=== PATIENT | female | born 1955 | race African-American/Black ===

== ENCOUNTER 2025-09-05 09:14 | Inpatient (IN) | payer MEDICARE, MEDICAID ==
[~2025-09-05] VITALS: Ht 167.6 cm; Wt 98.4 kg
[2025-09-05] VITALS (31 sets, daily range): BP systolic 69–131; BP diastolic 33–62; PULSE 73–91; RESP 14–29; TEMP 36.5–37.0852; O2SAT 94–100
[2025-09-05 09:56] LABS: BASOPHILS % 0.4 % (0.0-2.0); EOSINOPHILS % 0.1 % (0.0-5.0); HEMATOCRIT. 43.2 % (36.0-48.0); HEMOGLOBIN. 13.7 g/dL (12.0-16.0); LYMPHOCYTES % 7.5 % (20.0-50.0); MEAN PLATELET VOLUME 10.3 fl (7.4-10.4); MONOCYTES % 3.9 % (2.0-8.0); NEUTROPHILS % 88.1 % (40.0-76.0); PLATELET 203 x1000/uL (130-400); RED BLOOD CELL COUNT 4.77 mill/uL (4.2-5.4); RED CELL DISTRIBUTION WIDTH 15.4 % (11.6-14.6)
[2025-09-05] MEDS: ACETAMINOPHEN 325MG TABLET PO ONE (10:04)
[2025-09-05 10:28] LABS: TROPONIN I HIGH SENSITIVITY 11 ng/L (3.0-34)
[2025-09-05 12:19] LABS: CREATININE 2.2 mg/dL (0.6-1.0)
[2025-09-05 12:20] LABS: UREA NITROGEN BLOOD 35 mg/dL (9-23)
[2025-09-05 12:21] LABS: ASPARTATE AMINOTRANSFERASE 14 IU/L (<34)
[2025-09-05 12:22] LABS: BILIRUBIN DIRECT 0.1 mg/dL (<=3.0); BILIRUBIN TOTAL 0.4 mg/dL (0.1-1.0); PROTEIN TOTAL 7.1 g/dL (6.0-8.3)
[2025-09-05] MEDS ORDERED: INSULIN REGULAR (DRIP) 100 UNITS in SODIUM CHLORIDE 0.9% 99 ML IV STA (12:50)
[2025-09-05] MEDS ORDERED: BLOOD SUGAR DIAGNOSTIC STRIP TEST PRN ×2 (13:00→13:15)
[2025-09-05] MEDS ORDERED: DEXTROSE 50% WATER 50ML SYRINGE IV PRN ×2 (13:00→13:15)
[2025-09-05] MEDS: INSULIN REGULAR (HUMULIN R) 1000UNITS/10ML VIAL IV ONE (13:07)
[2025-09-05] MEDS: SODIUM CHLORIDE 0.9% 1,000 ML IV SCH ×2 (13:07→13:15)
[2025-09-05] MEDS: BLOOD SUGAR DIAGNOSTIC STRIP TEST SCH ×2 (13:15→13:20)
[2025-09-05] MEDS ORDERED: CLONIDINE 0.1MG TABLET PO PRN (13:15)
[2025-09-05] MEDS ORDERED: MAGNESIUM/ALUMINUM HYDROXIDE/SIMETHICONE 30ML UDC PO PRN (13:15)
[2025-09-05] MEDS ORDERED: ACETAMINOPHEN 325MG TABLET PO PRN (13:15)
[2025-09-05] MEDS ORDERED: GUAIFENESIN 200MG/10ML SUGAR FREE UDC PO PRN (13:15)
[2025-09-05] MEDS ORDERED: ONDANSETRON HCL 4MG/2ML INJ IV PRN (13:15)
[2025-09-05] MEDS ORDERED: SODIUM PHOSPHATE 15 MMOL in SODIUM CHLORIDE 0.9% 245 ML IV PRN (13:15)
[2025-09-05] MEDS ORDERED: POTASSIUM CHLORIDE 40 MEQ in SODIUM CHLORIDE 0.9% 230 ML IV PRN (13:15)
[2025-09-05] MEDS ORDERED: DOCUSATE SODIUM 100MG CAPSULE PO PRN (13:15)
[2025-09-05] MEDS: INSULIN REGULAR 100U/100ML PMX 100 ML IV PRN ×2 (13:19→20:06)
[2025-09-05 14:06] LABS: BG BASE EXCESS -5.4 mmol/L (-2.0-3.0); BG CARBOXYHEMOGLOBIN 1.5 % (0.5-1.5); BG DEOXYHEMOGLOBIN 2.9 % (0.0-5.0); BG FRACTION INSPIRED OXYGEN 21; BG HCO3 ACT 18.7 mmol/L (21.0-28.0); BG METHEMOGLOBIN 0.1 % (0.5-1.5); BG OXYGEN SATURATION 97.1 % (94.0-98.0); BG OXYHEMOGLOBIN 95.5 % (94.0-98.0); BG PCO2 32.7 mmHg (32.0-45.0); BG PH 7.376 (7.350-7.450); BG PO2 90.3 mmHg (83.0-108.0); BG SAMPLE SITE RIGHT RADIAL; BG TOTAL HEMOGLOBIN 13.8 g/dL (12.0-16.0); BG VENT MODE ROOM AIR
[2025-09-05 15:39] LABS: CREATININE 2.2 mg/dL (0.6-1.0)
[2025-09-05 15:40] LABS: TROPONIN I HIGH SENSITIVITY 12 ng/L (3.0-34); UREA NITROGEN BLOOD 45.0 mg/dL (9-23)
[2025-09-05] MEDS: KCL 20MEQ/100ML PREMIX 100 ML IV PRN (16:09)
[2025-09-05 16:49] LABS: PHOSPHORUS 3.7 mg/dL (2.5-4.9)
[2025-09-05] MEDS ORDERED: NOREPINEPHRINE 8MG/250ML PMX 250ML IV PRN (17:15)
[2025-09-05] MEDS ORDERED: NOREPINEPHRINE 8 MG in DEXT 5% WATER 242 ML IV PRN (17:15)
[2025-09-05] MEDS: SODIUM CHLORIDE 0.9% (SEPSIS BOLUS) IV ONE (18:00)
[2025-09-05] MEDS ORDERED: INSULIN REGULAR 100U/100ML PMX 100 ML IV PRN (18:00)
[2025-09-05 18:18] LABS: CLARITY URINE TURBID (CLEAR); GLUCOSE URINE 3+ (NEGATIVE); KETONES URINE NEGATIVE (NEGATIVE); LEUKOCYTE ESTERASE URINE 3+ (NEGATIVE); NITRITE URINE NEGATIVE (NEGATIVE); OCCULT BLOOD URINE 3+ (NEGATIVE); PH URINE 5.0 (4.5-8.0); PROTEIN URINE 1+ (NEGATIVE); SPECIFIC GRAVITY URINE 1.012 (1.005-1.030); UROBILINOGEN URINE 0.2 E.U./dL (0.2-1.0)
[2025-09-05] MEDS: ENOXAPARIN 30MG/0.3ML SYR SUBCUT SCH (18:47)
[2025-09-05 18:57] LABS: COLOR URINE STRAW (YELLOW)
[2025-09-05 19:01] LABS: *AMPHETAMINES SCREEN URINE NEGATIVE (NEGATIVE); *BARBITURATES SCREEN URINE NEGATIVE (NEGATIVE); *BENZODIAZEPINES SCREEN URINE NEGATIVE (NEGATIVE); *COCAINE SCREEN URINE NEGATIVE (NEGATIVE)
[2025-09-05 19:02] LABS: BACTERIA URINE 4+; CANNABINOID URINE SCREEN NEGATIVE (NEGATIVE); ECSTASY MDMA SCREEN URINE NEGATIVE (NEGATIVE); METHADONE URINE SCREEN NEGATIVE (NEGATIVE); OPIATES URINE SCREEN NEGATIVE (NEGATIVE); PHENCYCLIDINE URINE SCREEN NEGATIVE (NEGATIVE); RBC URINE 0-2 /hpf (0-2); SQUAMOUS EPITHELIAL CELL URINE RARE /lpf (RARE/1+); YEAST URINE 3+
[2025-09-05 19:03] LABS: MUCUS URINE TRACE /lpf (< = 2+)
[2025-09-05] MEDS: DEXT 5%/0.9% NACL 1,000 ML IV SCH (19:25)
[2025-09-05 22:16] LABS: CREATININE 1.6 mg/dL (0.6-1.0)
[2025-09-05 22:17] LABS: UREA NITROGEN BLOOD 46 mg/dL (9-23)
[2025-09-05 22:19] LABS: PHOSPHORUS 2.4 mg/dL (2.5-4.9)
[2025-09-06] VITALS (92 sets, daily range): BP systolic 83–157; BP diastolic 35–80; PULSE 74–95; RESP 11–32; TEMP 36.7–37; O2SAT 92–100
[2025-09-06 03:22] LABS: PHOSPHORUS 2.5 mg/dL (2.5-4.9)
[2025-09-06 07:03] LABS: BASOPHILS % 0.1 % (0.0-2.0); EOSINOPHILS % 0.4 % (0.0-5.0); HEMATOCRIT. 34.7 % (36.0-48.0); HEMOGLOBIN. 11.2 g/dL (12.0-16.0); LYMPHOCYTES % 14.2 % (20.0-50.0); MEAN PLATELET VOLUME 10.0 fl (7.4-10.4); MONOCYTES % 14.4 % (2.0-8.0); NEUTROPHILS % 70.9 % (40.0-76.0); PLATELET 157 x1000/uL (130-400); RED BLOOD CELL COUNT 3.99 mill/uL (4.2-5.4); RED CELL DISTRIBUTION WIDTH 15.0 % (11.6-14.6)
[2025-09-06 07:39] LABS: T4 FREE 0.86 ng/dL (0.89-1.76)
[2025-09-06 07:40] LABS: CREATININE 1.1 mg/dL (0.6-1.0)
[2025-09-06 07:41] LABS: TRIGLYCERIDE 218 mg/dL (0-150); UREA NITROGEN BLOOD 37 mg/dL (9-23)
[2025-09-06 07:42] LABS: ASPARTATE AMINOTRANSFERASE 18 IU/L (<34); LDL CHOLESTEROL 31 mg/dL (5-100)
[2025-09-06 07:43] LABS: BILIRUBIN DIRECT < 0.1 mg/dL (<=3.0); BILIRUBIN TOTAL 0.3 mg/dL (0.1-1.0); PROTEIN TOTAL 5.5 g/dL (6.0-8.3)
[2025-09-06] MEDS: PANTOPRAZOLE SODIUM 40 MG/VIAL IV SCH (08:16)
[2025-09-06] MEDS: CEFTRIAXONE 1GM/50ML 50 ML IV SCH (08:16)
[2025-09-06] MEDS: INSULIN GLARGINE 100 UNITS/ML SUBCUT SCH ×2 (10:48→21:19)
[2025-09-06 11:54] LABS: CLARITY URINE TURBID (CLEAR); COLOR URINE RED (YELLOW); GLUCOSE URINE NEGATIVE (NEGATIVE); KETONES URINE NEGATIVE (NEGATIVE); LEUKOCYTE ESTERASE URINE 3+ (NEGATIVE); NITRITE URINE POSITIVE (NEGATIVE); OCCULT BLOOD URINE 1+ (NEGATIVE); PH URINE 5.0 (4.5-8.0); PROTEIN URINE 1+ (NEGATIVE); SPECIFIC GRAVITY URINE 1.015 (1.005-1.030); UROBILINOGEN URINE 0.2 E.U./dL (0.2-1.0)
[2025-09-06] MEDS: SODIUM CHLORIDE 0.9% 500 ML IV ONE (12:15)
[2025-09-06 12:54] LABS: SQUAMOUS EPITHELIAL CELL URINE RARE /lpf (RARE/1+); WBC URINE TNTC /hpf (0-2)
[2025-09-06 12:55] LABS: BACTERIA URINE 4+; YEAST URINE 1+
[2025-09-06 12:56] LABS: RBC URINE 0-2 /hpf (0-2)
[2025-09-06 13:08] LABS: CREATININE 0.9 mg/dL (0.6-1.0); UREA NITROGEN BLOOD 26 mg/dL (9-23)
[2025-09-06 13:10] LABS: PHOSPHORUS 1.6 mg/dL (2.5-4.9)
[2025-09-06] MEDS: BLOOD SUGAR DIAGNOSTIC STRIP TEST SCH (13:15)
[2025-09-06] MEDS: NOREPINEPHRINE 8MG/250ML PMX 250 ML IV PRN (13:30)
[2025-09-06] MEDS: INSULIN LISPRO 100 UNITS/ML SUBCUT SCH (13:32)
[2025-09-06] MEDS: SODIUM PHOSPHATE 30 MMOL in DEXT 5% WATER 490 ML IV ONE (17:23)
[2025-09-06] MEDS: SODIUM CHLORIDE 0.9% 1,000 ML IV SCH (18:54)
[2025-09-06] MEDS: MIDODRINE HCL 5MG TABLET PO SCH (18:55)
[2025-09-06] MEDS: MAGNESIUM 2 G PREMIX 50 ML IV PRN (19:36)
[2025-09-07] VITALS (76 sets, daily range): BP systolic 105–149; BP diastolic 45–75; PULSE 71–89; RESP 0–34; TEMP 36.8–36.9; O2SAT 96–100
[2025-09-07 06:25] LABS: BASOPHILS % 0.3 % (0.0-2.0); EOSINOPHILS % 0.2 % (0.0-5.0); HEMATOCRIT. 32.8 % (36.0-48.0); HEMOGLOBIN. 10.6 g/dL (12.0-16.0); LYMPHOCYTES % 17.2 % (20.0-50.0); MEAN PLATELET VOLUME 9.5 fl (7.4-10.4); MONOCYTES % 14.6 % (2.0-8.0); NEUTROPHILS % 67.7 % (40.0-76.0); PLATELET 155 x1000/uL (130-400); RED BLOOD CELL COUNT 3.78 mill/uL (4.2-5.4); RED CELL DISTRIBUTION WIDTH 15.0 % (11.6-14.6)
[2025-09-07 06:44] LABS: CREATININE 0.7 mg/dL (0.6-1.0); UREA NITROGEN BLOOD 18 mg/dL (9-23)
[2025-09-07 08:43] LABS: PHOSPHORUS 1.7 mg/dL (2.5-4.9)
[2025-09-07] MEDS: MIDODRINE HCL 5MG TABLET PO SCH (08:55)
[2025-09-07] MEDS: INSULIN LISPRO 100 UNITS/ML SUBCUT SCH (13:54)
[2025-09-08] VITALS: BP 110/53; PULSE 75; RESP 18; TEMP 36.5; O2SAT 100
[2025-09-08 04:00] VITALS: BP 111/57; PULSE 80; RESP 18; TEMP 36.5; O2SAT 99
[2025-09-08 06:35] LABS: BASOPHILS % 0.2 % (0.0-2.0); EOSINOPHILS % 0.6 % (0.0-5.0); HEMATOCRIT. 33.2 % (36.0-48.0); HEMOGLOBIN. 10.9 g/dL (12.0-16.0); LYMPHOCYTES % 23.3 % (20.0-50.0); MEAN PLATELET VOLUME 10.3 fl (7.4-10.4); MONOCYTES % 13.5 % (2.0-8.0); NEUTROPHILS % 62.4 % (40.0-76.0); PLATELET 140 x1000/uL (130-400); RED BLOOD CELL COUNT 3.83 mill/uL (4.2-5.4); RED CELL DISTRIBUTION WIDTH 15.3 % (11.6-14.6)
[2025-09-08 06:37] LABS: CREATININE 0.7 mg/dL (0.6-1.0); UREA NITROGEN BLOOD 8 mg/dL (9-23)
[2025-09-08 08:00] VITALS: BP 106/48; PULSE 76; RESP 18; TEMP 37.2; O2SAT 98
[2025-09-08] MEDS: ENOXAPARIN 30MG/0.3ML SYR SUBCUT SCH (10:32)
[2025-09-08] MEDS: INSULIN GLARGINE 100 UNITS/ML SUBCUT SCH (10:33)
[2025-09-08 12:00] VITALS: BP 104/55; PULSE 74; RESP 18; TEMP 37.7; O2SAT 99
[2025-09-08 16:00] VITALS: BP 124/58; PULSE 72; RESP 20; TEMP 37.7; O2SAT 100
[2025-09-08] MEDS: MENTHOL/LANOLIN/CALAMINE/ZN OX OINT 71GM TOP SCH (21:00)
[2025-09-09] VITALS: BP 118/77; PULSE 78; RESP 18; TEMP 36.4; O2SAT 100
[2025-09-09 04:00] VITALS: BP 144/63; PULSE 80; RESP 18; TEMP 36.2; O2SAT 97
[2025-09-09 08:00] VITALS: BP 133/72; PULSE 82; RESP 19; TEMP 38.2; O2SAT 100
[2025-09-09 12:00] VITALS: BP 132/67; PULSE 77; RESP 18; TEMP 36.6; O2SAT 100
[2025-09-09 16:00] VITALS: BP 168/74; PULSE 77; RESP 19; TEMP 36.4; O2SAT 100
[2025-09-09] MEDS ORDERED: FLAS1EAC2 MC (16:52)
[2025-09-09] MEDS ORDERED: METF-414 MT (16:52)
[2025-09-09] MEDS ORDERED: NITR-87 MT (16:52)
[2025-09-09] MEDS ORDERED: LANC-493 TP (16:52)
[2025-09-09] MEDS ORDERED: INSU100I28 SQ (16:52)
[2025-09-09 20:00] VITALS: BP 116/57; PULSE 83; RESP 18; TEMP 36.1; O2SAT 99
[2025-09-10] VITALS (94 sets, daily range): BP systolic 31–197; BP diastolic 20–118; PULSE 51–163; RESP 0–37; TEMP 35.5–37.8; O2SAT 81–100
[2025-09-10 10:40] LABS: BG BASE EXCESS -3.2 mmol/L (-2.0-3.0); BG CARBOXYHEMOGLOBIN 0.6 % (0.5-1.5); BG DEOXYHEMOGLOBIN 0.1 % (0.0-5.0); BG FRACTION INSPIRED OXYGEN 100; BG HCO3 ACT 21.9 mmol/L (21.0-28.0); BG METHEMOGLOBIN 0.3 % (0.5-1.5); BG OXYGEN SATURATION 99.9 % (94.0-98.0); BG OXYHEMOGLOBIN 99.0 % (94.0-98.0); BG PCO2 39.3 mmHg (32.0-45.0); BG PH 7.363 (7.350-7.450); BG PO2 419.8 mmHg (83.0-108.0); BG SAMPLE SITE LEFT RADIAL; BG TOTAL HEMOGLOBIN 12.5 g/dL (12.0-16.0); BG VENT MODE MASK - NRB
[2025-09-10] MEDS ORDERED: LEVETIRACETAM 1,000MG in NACL 100ML PREMIX IV ONE (10:45)
[2025-09-10] MEDS: LEVETIRACETAM 1000MG PREMIX 100 ML IV NR (10:45)
[2025-09-10] MEDS ORDERED: PROPOFOL 10MG/ML 100ML 100 ML IV PRN (11:30)
[2025-09-10] MEDS: EPINEPHRINE 10 MG in SODIUM CHLORIDE 0.9% 240 ML IV PRN (12:27)
[2025-09-10] MEDS ORDERED: MAGNESIUM 2 G PREMIX 50 ML IV SCH (13:00)
[2025-09-10] MEDS ORDERED: PHENYLEPHRINE 50MG/250ML PMX 250 ML IV PRN (14:30)
[2025-09-10] MEDS: PHENYLEPHRINE 50 MG in DEXTROSE 5% WATER 250 ML IV PRN (15:30)
[2025-09-10] MEDS: NOREPINEPHRINE 8MG/250ML PMX 250 ML IV PRN (15:30)
[2025-09-10] MEDS ORDERED: AMIODARONE HCL 150 MG in DEXT 5% WATER 100 ML IV ONE (15:30)
[2025-09-10] MEDS: MAGNESIUM 2 G PREMIX 50 ML IV SCH (15:31)
[2025-09-10 15:39] LABS: BASOPHILS % 0.5 % (0.0-2.0); EOSINOPHILS % 0.4 % (0.0-5.0); HEMATOCRIT. 39.1 % (36.0-48.0); HEMOGLOBIN. 11.5 g/dL (12.0-16.0); LYMPHOCYTES % 42.3 % (20.0-50.0); MEAN PLATELET VOLUME 8.3 fl (7.4-10.4); MONOCYTES % 3.7 % (2.0-8.0); NEUTROPHILS % 53.1 % (40.0-76.0); PLATELET 139 x1000/uL (130-400); RED BLOOD CELL COUNT 4.07 mill/uL (4.2-5.4); RED CELL DISTRIBUTION WIDTH 16.3 % (11.6-14.6)
[2025-09-10] MEDS: VASOPRESSIN 20 UNIT in SODIUM CHLORIDE 0.9% 99 ML IV PRN (15:51)
[2025-09-10 15:59] LABS: UREA NITROGEN BLOOD 15 mg/dL (9-23)
[2025-09-10 16:01] LABS: PHOSPHORUS 7.2 mg/dL (2.5-4.9)
[2025-09-10 16:29] LABS: CREATININE 1.5 mg/dL (0.6-1.0)
[2025-09-10 16:32] LABS: TROPONIN I HIGH SENSITIVITY 1636 ng/L (3.0-34)
[2025-09-10] MEDS ORDERED: DOPAMINE 400MG/250ML PREMIX 250 ML IV PRN (16:45)
[2025-09-10] MEDS ORDERED: *TENECTEPLASE FOR AIS XX SCH (17:00)
[2025-09-10] MEDS: TENECTEPLASE 50MG/VIAL (FOR MI OR PE) IV ONE (17:00)
[2025-09-10] MEDS: EPINEPHRINE 20 MG in SODIUM CHLORIDE 0.9% 480 ML IV PRN (17:55)
[2025-09-10] MEDS: AMIODARONE 150MG/100ML PREMIX IV SCH (18:01)
[2025-09-10] MEDS: AMIODARONE HCL 900 MG in DEXT 5% WATER 482 ML IV SCH (18:19)
[2025-09-10] MEDS: BLOOD SUGAR DIAGNOSTIC STRIP TEST SCH (20:35)
[2025-09-10] MEDS: PANTOPRAZOLE SODIUM 40 MG/VIAL IV SCH (20:41)
[2025-09-10] MEDS: LEVETIRACETAM 500MG PREMIX 100 ML IV SCH (20:41)
[2025-09-10] MEDS: INSULIN LISPRO 100 UNITS/ML SUBCUT SCH (20:42)
[2025-09-10] MEDS ORDERED: LEVETIRACETAM 500MG in NACL 100ML PREMIX IV SCH (21:00)
[2025-09-10] MEDS: NOREPINEPHRINE 32 MG in DEXT 5% WATER 218 ML IV PRN (21:28)
[2025-09-10] MEDS: PHENYLEPHRINE 100 MG in DEXT 5% WATER 240 ML IV PRN (21:28)
[2025-09-10 23:03] LABS: TROPONIN I HIGH SENSITIVITY 5219 ng/L (3.0-34)
[2025-09-10] MEDS: IOHEXOL-350 100 ML BOTTLE ONE (23:49)
[2025-09-11] VITALS (127 sets, daily range): BP systolic 80–231; BP diastolic 37–60; PULSE 73–117; RESP 9–39; TEMP 37.2–38.5; O2SAT 40–100
[2025-09-11 02:07] LABS: TROPONIN I HIGH SENSITIVITY 4588 ng/L (3.0-34)
[2025-09-11] MEDS: ACETAMINOPHEN 650MG SUPP PR PRN (03:44)
[2025-09-11 05:16] LABS: PLATELET 176 x1000/uL (130-400); RED BLOOD CELL COUNT 4.31 mill/uL (4.2-5.4); RED CELL DISTRIBUTION WIDTH 15.8 % (11.6-14.6)
[2025-09-11 05:29] LABS: INR 1.6
[2025-09-11 05:31] LABS: TRIGLYCERIDE 148 mg/dL (0-150)
[2025-09-11 05:33] LABS: BILIRUBIN DIRECT 0.2 mg/dL (<=3.0); BILIRUBIN TOTAL 0.3 mg/dL (0.1-1.0); PROTEIN TOTAL 4.7 g/dL (6.0-8.3)
[2025-09-11 05:40] LABS: TROPONIN I HIGH SENSITIVITY 4199 ng/L (3.0-34)
[2025-09-11 05:46] LABS: ASPARTATE AMINOTRANSFERASE 1741 IU/L (<34)
[2025-09-11 08:15] LABS: UREA NITROGEN BLOOD 22.0 mg/dL (9-23)
[2025-09-11 08:27] LABS: CREATININE 2.1 mg/dL (0.6-1.0)
[2025-09-11 10:23] LABS: BG BASE EXCESS -9.9 mmol/L (-2.0-3.0); BG CARBOXYHEMOGLOBIN 0.6 % (0.5-1.5); BG DEOXYHEMOGLOBIN 1.3 % (0.0-5.0); BG FRACTION INSPIRED OXYGEN 40; BG HCO3 ACT 15.1 mmol/L (21.0-28.0); BG METHEMOGLOBIN 0.3 % (0.5-1.5); BG OXYGEN SATURATION 98.7 % (94.0-98.0); BG OXYHEMOGLOBIN 97.8 % (94.0-98.0); BG PCO2 30.5 mmHg (32.0-45.0); BG PEEP (cmH2O) 5.0 cmH2O; BG PH 7.312 (7.350-7.450); BG PO2 114.9 mmHg (83.0-108.0); BG SAMPLE SITE LEFT BRACHIAL; BG TIDAL VOLUME(mL) 450.0 mL; BG TOTAL HEMOGLOBIN 12.4 g/dL (12.0-16.0); BG TOTAL RESPIRATORY RATE 31 b/min; BG VENT MODE VENT - AC; BG VENT RATE 16.0 set
[2025-09-11] MEDS: ACETAMINOPHEN 650MG/20.3ML UDC NG PRN (13:27)
[2025-09-11] MEDS: SODIUM BICARBONATE 8.4% 50MEQ/50ML SYR IV SCH (13:29)
[2025-09-11] MEDS: SODIUM CHLORIDE 0.9% 500 ML IV ONE ×2 (13:37→18:39)
[2025-09-11 18:25] LABS: PLATELET 143 x1000/uL (130-400); RED BLOOD CELL COUNT 3.68 mill/uL (4.2-5.4); RED CELL DISTRIBUTION WIDTH 15.6 % (11.6-14.6)
[2025-09-11] MEDS: HEPARIN 80 UNITS/KG BOLUS IV SCH (18:39)
[2025-09-11] MEDS: HEPARIN 25,000 UNITS PREMIX 250 ML IV SCH (18:44)
[2025-09-11] MEDS: IPRATROPIUM/ALBUTEROL 0.5-3(2.5)MG/3ML NEB HHN PRN (20:35)
[2025-09-11] MEDS: INSULIN GLARGINE 100 UNITS/ML SUBCUT SCH (22:01)
[2025-09-11] MEDS ORDERED: HEPARIN BOLUS PRN aPTT <36 IV (23:30)
[2025-09-11] MEDS ORDERED: HEPARIN BOLUS PRN aPTT 37-44 IV (23:30)
[2025-09-12] VITALS (107 sets, daily range): BP systolic 105–147; BP diastolic 46–55; PULSE 98–113; RESP 12–35; TEMP 36.1–37.5; O2SAT 100
[2025-09-12 00:34] LABS: PLATELET 140 x1000/uL (130-400); RED BLOOD CELL COUNT 3.35 mill/uL (4.2-5.4); RED CELL DISTRIBUTION WIDTH 15.5 % (11.6-14.6)
[2025-09-12 05:43] LABS: BASOPHILS % 0.4 % (0.0-2.0); EOSINOPHILS % 0.6 % (0.0-5.0); HEMATOCRIT. 29.1 % (36.0-48.0); HEMOGLOBIN. 9.5 g/dL (12.0-16.0); LYMPHOCYTES % 7.6 % (20.0-50.0); MEAN PLATELET VOLUME 9.1 fl (7.4-10.4); MONOCYTES % 3.9 % (2.0-8.0); NEUTROPHILS % 87.5 % (40.0-76.0); PLATELET 146 x1000/uL (130-400); RED BLOOD CELL COUNT 3.35 mill/uL (4.2-5.4); RED CELL DISTRIBUTION WIDTH 15.3 % (11.6-14.6)
[2025-09-12 06:18] LABS: UREA NITROGEN BLOOD 23 mg/dL (9-23)
[2025-09-12 06:21] LABS: PHOSPHORUS 3.9 mg/dL (2.5-4.9)
[2025-09-12 06:26] LABS: CREATININE 3.1 mg/dL (0.6-1.0)
[2025-09-12] MEDS: SODIUM CHLORIDE 0.9% 1,000 ML IV ONE (09:00)
[2025-09-12 09:23] LABS: BG BASE EXCESS -3.7 mmol/L (-2.0-3.0); BG CARBOXYHEMOGLOBIN 1.5 % (0.5-1.5); BG DEOXYHEMOGLOBIN 0.9 % (0.0-5.0); BG FRACTION INSPIRED OXYGEN 40; BG HCO3 ACT 19.2 mmol/L (21.0-28.0); BG METHEMOGLOBIN 0.0 % (0.5-1.5); BG OXYGEN SATURATION 99.1 % (94.0-98.0); BG OXYHEMOGLOBIN 97.6 % (94.0-98.0); BG PCO2 28.1 mmHg (32.0-45.0); BG PEEP (cmH2O) 5.0 cmH2O; BG PH 7.452 (7.350-7.450); BG PO2 152.8 mmHg (83.0-108.0); BG SAMPLE SITE RIGHT RADIAL; BG TIDAL VOLUME(mL) 450.0 mL; BG TOTAL HEMOGLOBIN 11.3 g/dL (12.0-16.0); BG VENT MODE VENT - AC; BG VENT RATE 22.0 set
[2025-09-12 12:19] LABS: BASOPHILS % 0.4 % (0.0-2.0); EOSINOPHILS % 0.7 % (0.0-5.0); HEMATOCRIT. 27.2 % (36.0-48.0); HEMOGLOBIN. 8.8 g/dL (12.0-16.0); LYMPHOCYTES % 10.9 % (20.0-50.0); MEAN PLATELET VOLUME 8.5 fl (7.4-10.4); MONOCYTES % 5.0 % (2.0-8.0); NEUTROPHILS % 83.0 % (40.0-76.0); PLATELET 151 x1000/uL (130-400); RED BLOOD CELL COUNT 3.14 mill/uL (4.2-5.4); RED CELL DISTRIBUTION WIDTH 15.8 % (11.6-14.6)
[2025-09-12 12:31] LABS: CREATININE 3.4 mg/dL (0.6-1.0); UREA NITROGEN BLOOD 26 mg/dL (9-23)
[2025-09-12 12:33] LABS: PHOSPHORUS 3.5 mg/dL (2.5-4.9)
[2025-09-12 17:24] LABS: CLARITY URINE TURBID (CLEAR); COLOR URINE RED (YELLOW); GLUCOSE URINE NEGATIVE (NEGATIVE); KETONES URINE TRACE (NEGATIVE); LEUKOCYTE ESTERASE URINE 3+ (NEGATIVE); NITRITE URINE NEGATIVE (NEGATIVE); OCCULT BLOOD URINE 3+ (NEGATIVE); PH URINE 5.5 (4.5-8.0); PROTEIN URINE 3+ (NEGATIVE); SPECIFIC GRAVITY URINE 1.016 (1.005-1.030); UROBILINOGEN URINE 0.2 E.U./dL (0.2-1.0)
[2025-09-12] MEDS: CEFTRIAXONE 1GM/50ML 50 ML IV SCH (18:07)
[2025-09-12 20:08] LABS: BACTERIA URINE 4+; SQUAMOUS EPITHELIAL CELL URINE 1+ /lpf (RARE/1+)
[2025-09-12 20:09] LABS: YEAST URINE 2+
[2025-09-12 20:10] LABS: RBC URINE 50-100 /hpf (0-2); WBC URINE 50-100 /hpf (0-2)
[2025-09-13] VITALS (124 sets, daily range): BP systolic 47–198; BP diastolic 30–104; PULSE 74–117; RESP 8–31; TEMP 36.8–39.9; O2SAT 98–100
[2025-09-13 06:02] LABS: BASOPHILS % 0.5 % (0.0-2.0); EOSINOPHILS % 0.1 % (0.0-5.0); HEMATOCRIT. 26.5 % (36.0-48.0); HEMOGLOBIN. 8.5 g/dL (12.0-16.0); LYMPHOCYTES % 11.6 % (20.0-50.0); MEAN PLATELET VOLUME 8.6 fl (7.4-10.4); MONOCYTES % 5.8 % (2.0-8.0); NEUTROPHILS % 82.0 % (40.0-76.0); PLATELET 138 x1000/uL (130-400); RED BLOOD CELL COUNT 3.04 mill/uL (4.2-5.4); RED CELL DISTRIBUTION WIDTH 15.8 % (11.6-14.6)
[2025-09-13 06:26] LABS: CREATININE 4.2 mg/dL (0.6-1.0); UREA NITROGEN BLOOD 28 mg/dL (9-23)
[2025-09-13 06:28] LABS: PHOSPHORUS 4.0 mg/dL (2.5-4.9)
[2025-09-13 10:55] LABS: BG BASE EXCESS -4.9 mmol/L (-2.0-3.0); BG CARBOXYHEMOGLOBIN 0.3 % (0.5-1.5); BG DEOXYHEMOGLOBIN 1.0 % (0.0-5.0); BG FRACTION INSPIRED OXYGEN 40; BG HCO3 ACT 18.9 mmol/L (21.0-28.0); BG METHEMOGLOBIN 0.3 % (0.5-1.5); BG OXYGEN SATURATION 99.0 % (94.0-98.0); BG OXYHEMOGLOBIN 98.4 % (94.0-98.0); BG PCO2 30.5 mmHg (32.0-45.0); BG PEEP (cmH2O) 5.0 cmH2O; BG PH 7.411 (7.350-7.450); BG PO2 161.5 mmHg (83.0-108.0); BG SAMPLE SITE RIGHT RADIAL; BG TIDAL VOLUME(mL) 450.0 mL; BG TOTAL HEMOGLOBIN 9.7 g/dL (12.0-16.0); BG VENT MODE NASAL CANNULA; BG VENT RATE 22.0 set
[2025-09-13] MEDS: ACETAMINOPHEN 1000MG/100ML 100 ML IV NR (11:03)
[2025-09-13] MEDS: VANCOMYCIN 1.75GM PMX (XELLIA) 350 ML IV NR (11:03)
[2025-09-13] MEDS: FAMOTIDINE 20MG/2ML VIAL IV SCH (11:18)
[2025-09-13] MEDS: INSULIN LISPRO 100 UNITS/ML SUBCUT SCH (12:00)
[2025-09-13] MEDS: BLOOD SUGAR DIAGNOSTIC STRIP TEST SCH (18:00)
[2025-09-13] MEDS: DEXTROSE 50% WATER 50ML SYRINGE IV PRN (18:36)
[2025-09-14] VITALS (127 sets, daily range): BP systolic 83–237; BP diastolic 39–93; PULSE 70–96; RESP 9–29; TEMP 90.9–100.2; O2SAT 91–100
[2025-09-14] MEDS: ACETAMINOPHEN 325MG TABLET PO PRN (00:33)
[2025-09-14 06:48] LABS: BASOPHILS % 0.5 % (0.0-2.0); EOSINOPHILS % 1.8 % (0.0-5.0); HEMATOCRIT. 24.8 % (36.0-48.0); HEMOGLOBIN. 8.1 g/dL (12.0-16.0); LYMPHOCYTES % 18.1 % (20.0-50.0); MEAN PLATELET VOLUME 8.8 fl (7.4-10.4); MONOCYTES % 6.7 % (2.0-8.0); NEUTROPHILS % 72.9 % (40.0-76.0); PLATELET 122 x1000/uL (130-400); RED BLOOD CELL COUNT 2.83 mill/uL (4.2-5.4); RED CELL DISTRIBUTION WIDTH 16.1 % (11.6-14.6)
[2025-09-14] MEDS ORDERED: LIDOCAINE HCL 1% 10 MG/ML 10ML VIAL ONE (07:20)
[2025-09-14 07:26] LABS: UREA NITROGEN BLOOD 40 mg/dL (9-23)
[2025-09-14 07:28] LABS: PHOSPHORUS 4.8 mg/dL (2.5-4.9)
[2025-09-14 08:05] LABS: CREATININE 5.3 mg/dL (0.6-1.0)
[2025-09-14] MEDS: DEXT 5%/0.9% NACL 1,000 ML IV SCH (09:42)
[2025-09-14 12:02] LABS: SODIUM URINE RANDOM 86.0 mEq/L
[2025-09-14 12:09] LABS: CREATININE URINE RANDOM 32.2 mg/dL; UREA NITROGEN URINE RANDOM 131.0 mg/dL
[2025-09-14 12:26] LABS: PROTEIN URINE RANDOM 309.0 mg/dL
[2025-09-14] MEDS: VANCOMYCIN 500MG/100ML IV SCH (17:09)
[2025-09-14] MEDS: FAMOTIDINE 20MG/2ML VIAL IV SCH (21:13)
[2025-09-15] VITALS (85 sets, daily range): BP systolic 70–126; BP diastolic 33–54; PULSE 50–73; RESP 0–30; TEMP 35.6; O2SAT 96–100
[2025-09-15 05:59] LABS: BASOPHILS % 0.7 % (0.0-2.0); EOSINOPHILS % 1.9 % (0.0-5.0); HEMATOCRIT. 24.5 % (36.0-48.0); HEMOGLOBIN. 8.0 g/dL (12.0-16.0); LYMPHOCYTES % 18.9 % (20.0-50.0); MEAN PLATELET VOLUME 9.0 fl (7.4-10.4); MONOCYTES % 8.6 % (2.0-8.0); NEUTROPHILS % 69.9 % (40.0-76.0); PLATELET 108 x1000/uL (130-400); RED BLOOD CELL COUNT 2.82 mill/uL (4.2-5.4); RED CELL DISTRIBUTION WIDTH 15.7 % (11.6-14.6)
[2025-09-15 06:12] LABS: PHOSPHORUS 4.7 mg/dL (2.5-4.9); UREA NITROGEN BLOOD 50 mg/dL (9-23)
[2025-09-15 06:17] LABS: CREATININE 5.6 mg/dL (0.6-1.0)
[2025-09-15] MEDS ORDERED: LORAZEPAM 2MG/ML UD SYRINGE IV PRN (14:30)
[2025-09-15] MEDS: MORPHINE SULFATE 2 MG/ML INJ (NOT FOR IM USE) IV NR (16:27)
[2025-09-15] MEDS: MORPHINE SULFATE 250 MG in DEXT 5% WATER 250 ML IV PRN (16:28)
[2025-09-15] MEDS: FENTANYL CITRATE/PF 50MCG/ML 2ML VIAL IV NR (16:28)
[2025-09-15] MEDS ORDERED: INSULIN GLARGINE 100 UNITS/ML SUBCUT SCH (22:00)
[2025-09-16] MEDS ORDERED: FAMOTIDINE 20MG/2ML VIAL IV SCH (09:00)
== END 2025-09-15 22:05 | DRG 870 ==
LOC: ER 09:14 → EDBEDREQSVC 12:54 → EDBEDREQ 12:58 → EDBEDREQTM 12:58 → CVICU 17:20 → 8WST 09-07 22:11 → MICUSO 09-10 11:07
PROVIDERS: ADMIT Internal Medicine; ATTEND Internal Medicine
PROC: 5A1955Z Respiratory Ventilation, Greater than 96 Consecutive Hours (ICD-10-PCS; principal; 2025-09-10)
PROC: 0BH17EZ Insertion of Endotracheal Airway into Trachea, Via Natural or Artificial Opening (ICD-10-PCS; 2025-09-10)
PROC: 5A12012 Performance of Cardiac Output, Single, Manual (ICD-10-PCS; 2025-09-10)
PROC: 02HV33Z Insertion of Infusion Device into Superior Vena Cava, Percutaneous Approach (ICD-10-PCS; 2025-09-10)
PROC: B548ZZA Ultrasonography of Superior Vena Cava, Guidance (ICD-10-PCS; 2025-09-10)
PROC: 3E03317 Introduction of Other Thrombolytic into Peripheral Vein, Percutaneous Approach (ICD-10-PCS; 2025-09-10)
PROC: 05HY33Z Insertion of Infusion Device into Upper Vein, Percutaneous Approach (ICD-10-PCS; 2025-09-14)
PROC: B54MZZA Ultrasonography of Right Upper Extremity Veins, Guidance (ICD-10-PCS; 2025-09-14)
DX: A41.9 Sepsis, unspecified organism (principal); E11.10 Type 2 diabetes mellitus with ketoacidosis without coma; I21.4 Non-ST elevation (NSTEMI) myocardial infarction; J96.01 Acute respiratory failure with hypoxia; I26.92 Saddle embolus of pulmonary artery without acute cor pulmonale; N17.0 Acute kidney failure with tubular necrosis; R65.21 Severe sepsis with septic shock; G93.1 Anoxic brain damage, not elsewhere classified; L89.152 Pressure ulcer of sacral region, stage 2; N39.0 Urinary tract infection, site not specified; I46.9 Cardiac arrest, cause unspecified; E11.42 Type 2 diabetes mellitus with diabetic polyneuropathy; N18.9 Chronic kidney disease, unspecified; I12.9 Hypertensive chronic kidney disease with stage 1 through stage 4 chronic kidney disease, or unspecified chronic kidney disease; D64.9 Anemia, unspecified; E87.1 Hypo-osmolality and hyponatremia; I82.621 Acute embolism and thrombosis of deep veins of right upper extremity; I47.20 Ventricular tachycardia, unspecified; Z51.5 Encounter for palliative care; E11.649 Type 2 diabetes mellitus with hypoglycemia without coma; S80.211A Abrasion, right knee, initial encounter; S80.212A Abrasion, left knee, initial encounter; R32 Unspecified urinary incontinence; E83.39 Other disorders of phosphorus metabolism; E87.5 Hyperkalemia; E11.621 Type 2 diabetes mellitus with foot ulcer; M25.552 Pain in left hip; E11.628 Type 2 diabetes mellitus with other skin complications; L85.9 Epidermal thickening, unspecified; E11.22 Type 2 diabetes mellitus with diabetic chronic kidney disease; L97.529 Non-pressure chronic ulcer of other part of left foot with unspecified severity; W01.0XXA Fall on same level from slipping, tripping and stumbling without subsequent striking against object, initial encounter; Z88.0 Allergy status to penicillin; Z79.4 Long term (current) use of insulin; Y92.89 Other specified places as the place of occurrence of the external cause; Z91.148 Patient's other noncompliance with medication regimen for other reason; Y93.89 Activity, other specified; Y99.8 Other external cause status
CPT/HCPCS: 31720; 36415; 36573; 36600; 71045; 71275; 73030; 73502; 76770; 80048; 80051; 80061; 80076; 80202; 80305; 81003; 82010; 82375; 82550; 82570; 82805; 82962; 83036; 83605; 83735; 83930; 84100; 84145; 84156; 84300; 84439; 84443; 84478; 84484; 84540; 85014; 85018; 85025; 85027; 87070; 87106; 92950; 93005; 93306; 93970; 93971; 94002; 94003; 94070; 94640; 94664; 94760; 96374; 97110; 97162; 97166; 97535; 98960; 99285; A4606; A4615; C1725; J0282; J0696; J1265; J1308; J1644; J1650; J1815; J1953; J2003; J2270; J2371; J2470; J3010; J3101; J3373; J3475; J3480; J3490; J7030; J7040; J7042; J7050; J7060; Q9967; J0131